=== PATIENT | male | born 2000 | race Caucasian/White ===

== ENCOUNTER 2022-06-26 02:03 | Emergency (ER) | payer MEDICAID ==
[~2022-06-26] VITALS: Ht 172.7 cm; Wt 63.5 kg
--- NOTE | 2022-06-26 02:03 | NUR ---
PT [facility] TAKEN TO CHAIR
[2022-06-26 02:10] VITALS: BP 120/78
--- NOTE | 2022-06-26 02:22 | NUR ---
Patient being evaluated by physician
--- NOTE | 2022-06-26 02:23 | NUR ---
Patient being evaluated by physician at bedside.
--- NOTE | 2022-06-26 02:32 | NUR ---
PATIENT BIB [place] [employer]. PATIENT EXAMINED BY . PATIENT MEDICALLY CLEARED AND RELEASED IN CUSTODY IN STABLE CONDITION. ORIGINAL PRE-BOOK FORM GIVEN TO OFFICER SUE, #[id number].
== END 2022-06-26 02:32 | disposition home or self-care (01) ==
LOC: MED 02:03
DX: F11.23 Opioid dependence with withdrawal (principal)
CPT/HCPCS: 99283